=== PATIENT | male | born 1960 | race African-American/Black ===

== ENCOUNTER 2018-04-14 08:43 | Emergency (ER) | payer OTHER ==
[~2018-04-14] VITALS: Ht 172.7 cm; Wt 86.2 kg
[~2018-04-14 08:43] MED LIST: ALBUTEROL SULF8.5 GM INH; PREDNISONE20 MG ORAL
[2018-04-14 08:50] VITALS: BP 167/79
[2018-04-14] MEDS ORDERED: Ipratropium 0.02% Inh Soln 2.5ml UD ONE (08:59)
[2018-04-14] MEDS ORDERED: Albuterol ud Inhalation ONE (08:59)
[2018-04-14] MEDS ORDERED: Albuterol ud Inhalation HHN ONE (09:00)
[2018-04-14] MEDS ORDERED: Ipratropium 0.02% Inh Soln 2.5ml UD HHN ONE (09:00)
[2018-04-14] MEDS ORDERED: cefTRIAXone 1 GM in NS 55 ML IVPB ONE (09:00)
[2018-04-14 09:18] LABS: BASOPHILS % (AUTO) 2.5 % (0.0-2.0); EOSINOPHILS % (AUTO) 9.6 % (0.0-3.0); HEMATOCRIT 45.1 % (42.0-52.0); HEMOGLOBIN 14.8 G/DL (14.2-18.0); LYMPHOCYTES % (AUTO) 10.3 % (20.0-45.0); MEAN CORPUSCULAR VOLUME 89 FL (80-99); MONOCYTES % (AUTO) 9.6 % (1.0-10.0); PLATELET COUNT 193 K/UL (150-450); RED BLOOD COUNT 5.08 M/UL (4.70-6.10); RED CELL DISTRIBUTION WIDTH 11.3 % (11.6-14.8)
[2018-04-14 09:32] LABS: ANION GAP 5 mmol/L (5-15); BLOOD UREA NITROGEN 18 mg/dL (7-18); CALCIUM 8.6 MG/DL (8.5-10.1); CARBON DIOXIDE 28 MMOL/L (21-32); CHLORIDE 106 MMOL/L (98-107); CREATININE 1.2 MG/DL (0.55-1.30); POTASSIUM 3.5 MMOL/L (3.5-5.1); SODIUM 139 MMOL/L (136-145)
[2018-04-14] MEDS ORDERED: NKM (09:36)
[2018-04-14 09:37] LABS: ALANINE AMINOTRANSFERASE 19 U/L (12-78); ALBUMIN 3.3 G/DL (3.4-5.0); ALBUMIN/GLOBULIN RATIO 0.8 (1.0-2.7); ALKALINE PHOSPHATASE 112 U/L (46-116); ASPARTATE AMINO TRANSFERASE 15 U/L (15-37); BILIRUBIN,TOTAL 0.2 MG/DL (0.2-1.0); CREATINE KINASE 147 U/L (26-308)
--- NOTE | 2018-04-14 09:54 | Diagnostic Imaging Report ---
Indication: Shortness of breath Technique: One view of the chest Comparison: none Findings: Lungs and pleural spaces are clear. Heart size is normal. Impression: No acute process
[2018-04-14] MEDS ORDERED: Solu-MEDROL 40mg Inj IVP SCH (11:15)
[2018-04-14] MEDS ORDERED: Oxymetazoline 0.05% Na Spray 30ml NASAL ONE (11:15)
[2018-04-14] MEDS ORDERED: Pseudoephedrine 30mg tab ORAL ONE (11:15)
--- NOTE | 2018-04-14 11:40 | Emergency Room Report ---
History of Present Illness General Chief Complaint: Dyspnea/Respdistress Source: Patient Present Illness HPI This patient complains of a couple days of shortness of breath and wheezing. Patient has a history of COPD. He states he's also had nasal congestion and sinus congestion. He has a history of nasal polyps. He states that he has been very short of breath. He does have an albuterol inhaler. He denies sputum production. Denies fever or chills. He denies chest pain. He has no other complaints. Allergies: Coded Allergies: PENICILLINS (Verified Allergy, Unknown, 02/16/18) Patient History Past Medical History: see triage record, HTN, asthma, COPD Social History: Denies: smoking, alcohol use, drug use Reviewed Nursing Documentation: PMH: Agreed; PSxH: Agreed Nursing Documentation-PMH Past Medical History: No History, Except For Hx Hypertension: Yes Hx Asthma: Yes Hx COPD: Yes Review of Systems All Other Systems: negative except mentioned in HPI Physical Exam Vital Signs Date Time Temp Pulse Resp B/P (MAP) Pulse Ox O2 Delivery O2 Flow Rate FiO2 04/14/18 08:46 97.9 124 28 167/79 96 Room Air 04/14/18 09:07 21 Sp02 EP Interpretation: reviewed, normal General Appearance: no apparent distress, alert, GCS 15, non-toxic Head: normocephalic, atraumatic Eyes: bilateral eye normal inspection, bilateral eye PERRL ENT: hearing grossly normal, normal pharynx, no angioedema, normal voice Neck: full range of motion, supple/symm/no masses Respiratory: chest non-tender, no respiratory distress, no retraction, no accessory muscle use, speaking full sentences, wheezing, expiration Cardiovascular #1: regular rate, rhythm, no edema Gastrointestinal: normal bowel sounds, non tender, soft, non-distended, no guarding, no rebound Rectal: deferred Musculoskeletal: back normal, gait/station normal, normal range of motion, non- tender Neurologic: alert, oriented x3, responsive, motor strength/tone normal, sensory intact, speech normal Psychiatric: judgement/insight normal, memory normal, mood/affect normal, no suicidal/homicidal ideation Skin: normal color, no rash, warm/dry, well hydrated Medical Decision Making Diagnostic Impression: Primary Impression: Asthma exacerbation Additional Impression: Upper respiratory infection ER Course This patient has a clinical presentation consistent with asthma exacerbation. Patient has a history of asthma and has wheezing on physical exam. The patient was given albuterol and Atrovent nebulizer treatments. The patient was also given prednisone orally. The patient had significant improvement in subjective shortness of breath. The patient's lung exam improved significantly. I will also treat the patient with a course of antibiotics as this has been shown to improve the course of an asthma exacerbation. The patient was given close return precautions and followup instructions. Laboratory Tests Test 04/14/18 09:05 White Blood Count 10.0 K/UL (4.8-10.8) Red Blood Count 5.08 M/UL (4.70-6.10) Hemoglobin 14.8 G/DL (14.2-18.0) Hematocrit 45.1 % (42.0-52.0) Mean Corpuscular Volume 89 FL (80-99) Mean Corpuscular Hemoglobin 29.2 PG (27.0-31.0) Mean Corpuscular Hemoglobin Concent 32.8 G/DL (32.0-36.0) Red Cell Distribution Width 11.3 % (11.6-14.8) L Platelet Count 193 K/UL (150-450) Mean Platelet Volume 8.7 FL (6.5-10.1) Neutrophils (%) (Auto) 68.0 % (45.0-75.0) Lymphocytes (%) (Auto) 10.3 % (20.0-45.0) L Monocytes (%) (Auto) 9.6 % (1.0-10.0) Eosinophils (%) (Auto) 9.6 % (0.0-3.0) H Basophils (%) (Auto) 2.5 % (0.0-2.0) H Prothrombin Time 10.3 SEC (9.30-11.50) Prothrombin Time INR 1.0 (0.9-1.1) PTT 31 SEC (23-33) Sodium Level 139 MMOL/L (136-145) Potassium Level 3.5 MMOL/L (3.5-5.1) Chloride Level 106 MMOL/L (98-107) Carbon Dioxide Level 28 MMOL/L (21-32) Anion Gap 5 mmol/L (5-15) Blood Urea Nitrogen 18 mg/dL (7-18) Creatinine 1.2 MG/DL (0.55-1.30) Estimate Glomerular Filtration Rate > 60 mL/min (>60) Glucose Level 113 MG/DL (74-106) H Calcium Level 8.6 MG/DL (8.5-10.1) Total Bilirubin 0.2 MG/DL (0.2-1.0) Aspartate Amino Transferase (AST) 15 U/L (15-37) Alanine Aminotransferase (ALT) 19 U/L (12-78) Alkaline Phosphatase 112 U/L (46-116) Total Creatine Kinase 147 U/L (26-308) Troponin I 0.000 ng/mL (0.000-0.056) Total Protein 7.7 G/DL (6.4-8.2) Albumin 3.3 G/DL (3.4-5.0) L Globulin 4.4 g/dL Albumin/Globulin Ratio 0.8 (1.0-2.7) L EKG Diagnostic Results Rate: tachycardiac Rhythm: other - S.tachycardia ST Segments: no acute changes Rhythm Strip Diag. Results EP Interpretation: yes Rate: 110's Rhythm: no PVC's, no ectopy, other - S.tachycardia Chest X-Ray Diagnostic Results Chest X-Ray Diagnostic Results : Chest X-Ray Ordered: Yes # of Views/Limited/Complete: 1 View Indication: Shortness of Breath EP Interpretation: Yes Interpretation: no consolidation, no effusion, no pneumothorax, no acute cardiopulmonary disease Impression: No acute disease Electronically Signed by: Duc Last Vital Signs Date Time Temp Pulse Resp B/P (MAP) Pulse Ox O2 Delivery O2 Flow Rate FiO2 04/14/18 09:07 110 22 98 Room Air 21 04/14/18 08:50 97.9 167/79 Status: improved Disposition: HOME, SELF-CARE Condition: Improved Referrals: NON PHYSICIAN (PCP) Nia Sullivan DO Apr 14, 2018 11:40
[2018-04-14] MEDS ORDERED: PSEUDOEPHEDRINE60 MG PO (11:42)
[2018-04-14] MEDS ORDERED: ALBUTEROL SULF8.5 GM INH (11:42)
[2018-04-14] MEDS ORDERED: PREDNISONE20 MG ORAL (11:42)
[2018-04-14] MEDS ORDERED: AFRIN NASAL SPR30 ML NASAL (11:42)
[2018-04-14] MEDS ORDERED: ZITHROMAX250 MG ORAL (11:42)
[2018-04-14 13:38] VITALS: BP 145/80
== END 2018-04-14 11:46 | disposition home or self-care (01) ==
LOC: EMR 10:01
DX: J45.901 Unspecified asthma with (acute) exacerbation (principal); J06.9 Acute upper respiratory infection, unspecified; I10 Essential (primary) hypertension; Z88.0 Allergy status to penicillin
CPT/HCPCS: 36415; 71045; 80053; 82550; 84484; 85025; 85610; 85730; 93005; 94640; 96365; 96366; 96367; 99284; J0696; J2920; J7512

== ENCOUNTER 2018-04-26 02:31 | Emergency (ER) | payer OTHER ==
[~2018-04-26] VITALS: Ht 175.3 cm; Wt 79.4 kg
[~2018-04-26 02:31] MED LIST changes: +AFRIN NASAL SPR30 ML NASAL; +NKM; +PSEUDOEPHEDRINE60 MG PO; +ZITHROMAX250 MG ORAL
[2018-04-26] MEDS ORDERED: Ipratropium 0.02% Inh Soln 2.5ml UD ONE (02:35)
[2018-04-26] MEDS ORDERED: Albuterol ud Inhalation ONE (02:35)
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
[2018-04-26 02:45] VITALS: BP 160/90
[2018-04-26] MEDS ORDERED: Solu-MEDROL 125mg Inj IVP ONE (02:45)
[2018-04-26] MEDS ORDERED: Albuterol ud Inhalation HHN ONE (02:45)
[2018-04-26] MEDS ORDERED: Ipratropium 0.02% Inh Soln 2.5ml UD HHN ONE (02:45)
[2018-04-26 02:52] LABS: BASOPHILS % (AUTO) 2.1 % (0.0-2.0); EOSINOPHILS % (AUTO) 3.2 % (0.0-3.0); HEMATOCRIT 51.3 % (42.0-52.0); HEMOGLOBIN 16.5 G/DL (14.2-18.0); LYMPHOCYTES % (AUTO) 15.1 % (20.0-45.0); MEAN CORPUSCULAR VOLUME 89 FL (80-99); MONOCYTES % (AUTO) 12.5 % (1.0-10.0); NEUTROPHILS % (AUTO) 67.1 % (45.0-75.0); PLATELET COUNT 323 K/UL (150-450); RED BLOOD COUNT 5.79 M/UL (4.70-6.10); RED CELL DISTRIBUTION WIDTH 11.4 % (11.6-14.8); WHITE BLOOD COUNT 9.3 K/UL (4.8-10.8)
[2018-04-26 02:58] LABS: ANION GAP 15 mmol/L (5-15); BLOOD UREA NITROGEN 19 mg/dL (7-18); CALCIUM 9.2 MG/DL (8.5-10.1); CARBON DIOXIDE 24 MMOL/L (21-32); CHLORIDE 102 MMOL/L (98-107); CREATININE 1.8 MG/DL (0.55-1.30); POTASSIUM 3.6 MMOL/L (3.5-5.1); SODIUM 140 MMOL/L (136-145)
[2018-04-26 03:00] VITALS: BP 160/90
[2018-04-26 03:00] LABS: APPEARANCE,URINE CLEAR; BILIRUBIN, URINE 1+ (NEGATIVE); GLUCOSE, URINE (UA) NEGATIVE (NEGATIVE); KETONES,URINE 1+ (NEGATIVE); LEUKOCYTE ESTERASE ,URINE NEGATIVE (NEGATIVE); NITRITE,URINE NEGATIVE (NEGATIVE); PH,URINE 5 (4.5-8.0); PROTEIN,URINE 3+ (NEGATIVE); UROBILINOGEN,URINE 4 MG/DL (0.0-1.0)
[2018-04-26 03:06] LABS: COLOR,URINE YELLOW
--- NOTE | 2018-04-27 17:52 | Cardiology Report ---
APPROVED REPORT EKG Measurement Heart [id number] Sinus tachycardia Otherwise normal ECG
== END 2018-04-26 03:00 | disposition left against medical advice (07) ==
LOC: EMR 02:50
DX: J45.901 Unspecified asthma with (acute) exacerbation (principal); J44.9 Chronic obstructive pulmonary disease, unspecified; I10 Essential (primary) hypertension; Z88.0 Allergy status to penicillin; F14.10 Cocaine abuse, uncomplicated; N17.9 Acute kidney failure, unspecified
CPT/HCPCS: 36415; 80048; 80307; 81001; 85025; 93005; 94640; 94664; 96374; 99284; J2930

== ENCOUNTER 2018-05-09 14:19 | Emergency (ER) | payer OTHER ==
[~2018-05-09] VITALS: Ht 172.7 cm; Wt 88.5 kg
[2018-05-09 14:41] VITALS: BP 96/76
[2018-05-09] MEDS ORDERED: Solu-MEDROL 125mg Inj IM ONE (15:00)
[2018-05-09] MEDS ORDERED: Albuterol ud Inhalation HHN ONE ×2 (15:00→17:30)
[2018-05-09] MEDS ORDERED: Ipratropium 0.02% Inh Soln 2.5ml UD HHN ONE ×2 (15:00→17:30)
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
[2018-05-09 16:58] VITALS: BP 115/63
[2018-05-09 19:20] VITALS: BP 119/67
[2018-05-09] MEDS ORDERED: MEDROL DOSEPAK4 MG ORAL (19:39)
[2018-05-09] MEDS ORDERED: AFRIN NASAL SPR30 ML NASAL (19:39)
[2018-05-09] MEDS ORDERED: ALBUTEROL SULF8.5 GM INH (19:39)
[2018-05-09 19:55] VITALS: BP 119/67
== END 2018-05-09 19:58 | disposition home or self-care (01) ==
LOC: EMR 16:05
DX: J44.9 Chronic obstructive pulmonary disease, unspecified (principal); I10 Essential (primary) hypertension; Z88.0 Allergy status to penicillin
CPT/HCPCS: 94640; 94664; 96372; 99284; J2930

== ENCOUNTER 2018-07-24 07:54 | Emergency (ER) | payer OTHER ==
[~2018-07-24] VITALS: Ht 172.7 cm; Wt 86.2 kg
[~2018-07-24 07:54] MED LIST changes: +MEDROL DOSEPAK4 MG ORAL
[2018-07-24 07:59] VITALS: BP 139/91
[2018-07-24 08:10] VITALS: BP 139/91
--- NOTE | 2018-07-24 08:11 | NUR ---
ED Nurse Note: PT. AAOX4. AMBULATORY. WALKED IN TO ER DUE COUGH AND CONGESTION X COUPLE DAYS WITH L KNEE PAIN NO. DENIES INJURY
--- NOTE | 2018-07-24 08:41 | Emergency Room Report ---
History of Present Illness General Chief Complaint: Flu Like Symptoms Source: Patient Present Illness HPI This is a 58-year-old male who complains of pain on the left foot and the left knee. Denies any trauma. He states that he's been walking quite a bit. He stated he had some flulike symptoms several days ago but he has improved. He denies any coughing or congestion. He denies any fever. No other associated symptoms. He denies any other trauma. Allergies: Coded Allergies: PENICILLINS (Verified Allergy, Unknown, 02/16/18) SULFA (SULFONAMIDE ANTIBIOTICS) (Verified Allergy, Unknown, 07/24/18) Patient History Past Medical History: none Past Surgical History: none Social History: Reports: smoking Nursing Documentation-PMH Hx Hypertension: Yes Hx Asthma: Yes Hx COPD: Yes Review of Systems All Other Systems: negative except mentioned in HPI Physical Exam Vital Signs Date Time Temp Pulse Resp B/P (MAP) Pulse Ox O2 Delivery O2 Flow Rate FiO2 07/24/18 07:59 97.5 100 17 139/91 98 Room Air General Appearance: well appearing, no apparent distress Head: normocephalic, atraumatic Neck: full range of motion, supple Respiratory: no respiratory distress, speaking full sentences Gastrointestinal: normal inspection, non tender, soft Musculoskeletal: other - left knee with small effusion. full ROM. Neg anterior/ posterior drawer sign. Neg Jelani's. Left foot has tenderness over plantar fascia. Medical Decision Making Diagnostic Impression: Primary Impression: Plantar fasciitis ER Course Patient has no signs of trauma. The patient is alert. X-ray was reviewed. Blood work was reviewed as well. CT no evidence of sepsis. The patient will be given pain medication. He is to follow-up with his primary care physician as an outpatient. My suspicion is that the left foot has plantar fasciitis. I recommended the patient to be seen by his primary care physician for further treatment. Laboratory Tests Test 07/24/18 08:50 White Blood Count 5.7 K/UL (4.8-10.8) Red Blood Count 4.88 M/UL (4.70-6.10) Hemoglobin 14.1 G/DL (14.2-18.0) L Hematocrit 45.2 % (42.0-52.0) Mean Corpuscular Volume 93 FL (80-99) Mean Corpuscular Hemoglobin 28.8 PG (27.0-31.0) Mean Corpuscular Hemoglobin Concent 31.2 G/DL (32.0-36.0) L Red Cell Distribution Width 12.4 % (11.6-14.8) Platelet Count 205 K/UL (150-450) Mean Platelet Volume 7.3 FL (6.5-10.1) Neutrophils (%) (Auto) 59.5 % (45.0-75.0) Lymphocytes (%) (Auto) 15.5 % (20.0-45.0) L Monocytes (%) (Auto) 15.0 % (1.0-10.0) H Eosinophils (%) (Auto) 8.4 % (0.0-3.0) H Basophils (%) (Auto) 1.6 % (0.0-2.0) Sodium Level 139 MMOL/L (136-145) Potassium Level 4.6 MMOL/L (3.5-5.1) Chloride Level 106 MMOL/L (98-107) Carbon Dioxide Level 29 MMOL/L (21-32) Anion Gap 5 mmol/L (5-15) Blood Urea Nitrogen 20 mg/dL (7-18) H Creatinine 1.3 MG/DL (0.55-1.30) Estimate Glomerular Filtration Rate > 60 mL/min (>60) Glucose Level 81 MG/DL (74-106) Calcium Level 9.2 MG/DL (8.5-10.1) Total Bilirubin 0.4 MG/DL (0.2-1.0) Aspartate Amino Transferase (AST) 17 U/L (15-37) Alanine Aminotransferase (ALT) 21 U/L (12-78) Alkaline Phosphatase 113 U/L (46-116) Total Protein 7.2 G/DL (6.4-8.2) Albumin 3.6 G/DL (3.4-5.0) Globulin 3.6 g/dL Albumin/Globulin Ratio 1.0 (1.0-2.7) Other X-Ray Diagnostic Results Other X-Ray Diagnostic Results : # of Views/Limited Vs Complete: 3 View Indication: Pain EP Interpretation: Yes Interpretation: no dislocation, no soft tissue swelling, no fractures Last Vital Signs Date Time Temp Pulse Resp B/P (MAP) Pulse Ox O2 Delivery O2 Flow Rate FiO2 07/24/18 08:10 97.5 100 17 139/91 98 Room Air Disposition: HOME, SELF-CARE Condition: Stable Scripts Ibuprofen* (MOTRIN*) 600 Mg Tablet 600 MG ORAL Q8H PRN for For Pain, #30 TAB 0 Refills Prov: MICHELET BARROS 07/24/18 Patient Instructions: Plantar Fasciitis MICHELET BARROS Jul 24, 2018 08:41
--- NOTE | 2018-07-24 08:56 | NUR ---
ED Nurse Note: Blood was drawn and x-ray done at the bedside.
[2018-07-24 09:06] LABS: BASOPHILS % (AUTO) 1.6 % (0.0-2.0); EOSINOPHILS % (AUTO) 8.4 % (0.0-3.0); HEMATOCRIT 45.2 % (42.0-52.0); HEMOGLOBIN 14.1 G/DL (14.2-18.0); LYMPHOCYTES % (AUTO) 15.5 % (20.0-45.0); MEAN CORPUSCULAR VOLUME 93 FL (80-99); NEUTROPHILS % (AUTO) 59.5 % (45.0-75.0); PLATELET COUNT 205 K/UL (150-450); RED BLOOD COUNT 4.88 M/UL (4.70-6.10); RED CELL DISTRIBUTION WIDTH 12.4 % (11.6-14.8); WHITE BLOOD COUNT 5.7 K/UL (4.8-10.8)
[2018-07-24 09:19] LABS: ANION GAP 5 mmol/L (5-15); BLOOD UREA NITROGEN 20 mg/dL (7-18); CALCIUM 9.2 MG/DL (8.5-10.1); CARBON DIOXIDE 29 MMOL/L (21-32); CHLORIDE 106 MMOL/L (98-107); CREATININE 1.3 MG/DL (0.55-1.30); POTASSIUM 4.6 MMOL/L (3.5-5.1); SODIUM 139 MMOL/L (136-145)
[2018-07-24 09:24] LABS: ALANINE AMINOTRANSFERASE 21 U/L (12-78); ALBUMIN 3.6 G/DL (3.4-5.0); ALKALINE PHOSPHATASE 113 U/L (46-116); ASPARTATE AMINO TRANSFERASE 17 U/L (15-37); BILIRUBIN,TOTAL 0.4 MG/DL (0.2-1.0)
--- NOTE | 2018-07-24 09:38 | Diagnostic Imaging Report ---
EXAM: XR Left Knee, 3 views CLINICAL HISTORY: PAIN TECHNIQUE: Three views of the left knee. COMPARISON: No relevant prior studies available. FINDINGS: Bones/joints: Moderate tricompartmental degenerative joint space loss and marginal osteophytes in the knee, most prominent in the medial tibiofemoral compartment and patellofemoral compartment. Small suprapatellar effusion. No visible fracture or dislocation. Soft tissues: Unremarkable. No radiodense foreign bodies. No soft tissue gas lucencies. Vasculature: Atherosclerotic calcifications posteriorly. IMPRESSION: 1. Moderate tricompartmental degenerative changes in the knee, most prominent in the medial tibiofemoral compartment and patellofemoral compartment. 2. Small suprapatellar effusion.
[2018-07-24] MEDS ORDERED: IBUPROFEN600 MG ORAL (11:10)
[2018-07-24 12:11] VITALS: BP 132/68
--- NOTE | 2018-07-24 12:12 | NUR ---
ER DISCHARGE NOTE: Patient is cleared to be discharged per ERMD, pt is aox4, on room air, with stable vital signs. pt was given dc and prescription instructions, pt was able to verbalize understanding, pt id band removed. pt is able to ambulate with steady gait. pt took all belongings.
== END 2018-07-24 12:13 | disposition home or self-care (01) ==
LOC: EMR 08:36
DX: M72.2 Plantar fascial fibromatosis (principal); J44.9 Chronic obstructive pulmonary disease, unspecified; I10 Essential (primary) hypertension; F17.200 Nicotine dependence, unspecified, uncomplicated
CPT/HCPCS: 36415; 80053; 85025; 99283

== ENCOUNTER 2019-03-30 04:49 | Emergency (ER) | payer OTHER ==
[~2019-03-30] VITALS: Ht 172.7 cm; Wt 83.9 kg
[~2019-03-30 04:49] MED LIST changes: +IBUPROFEN600 MG ORAL
--- NOTE | 2019-03-30 04:58 | Emergency Room Report ---
History of Present Illness General Chief Complaint: Acute Nausea Vomiting Source: Patient (Tremayne Franz MD) Present Illness HPI 58-year-old male history of hypertension, COPD, presents with epigastric pain that started at 4 AM, no aggravating relieving factors severity is moderate, constant he reveals a burning sensation, he had several episodes of emesis, he denies any chest pain shortness of breath, no diarrhea, he denies eating anything different no one else is sick. No fever no chills (Tremayne Franz MD) Allergies: Coded Allergies: PENICILLINS (Verified Allergy, Unknown, 02/16/18) SULFA (SULFONAMIDE ANTIBIOTICS) (Verified Allergy, Unknown, 07/24/18) Patient History Past Medical History: see triage record Social History: Reports: alcohol use, drug use Reviewed Nursing Documentation: PMH: Agreed; PSxH: Agreed (Tremayne Franz MD) Nursing Documentation-PMH Hx Hypertension: Yes Hx Asthma: Yes Hx COPD: Yes (Tremayne Franz MD) Review of Systems All Other Systems: negative except mentioned in HPI (Tremayne Franz MD) Physical Exam Vital Signs Date Time Temp Pulse Resp B/P (MAP) Pulse Ox O2 Delivery O2 Flow Rate FiO2 03/30/19 04:59 98.4 114 14 158/74 (102) 100 Room Air Sp02 EP Interpretation: reviewed, normal General Appearance: well appearing, no apparent distress, alert Head: normocephalic, atraumatic Eyes: bilateral eye PERRL, bilateral eye EOMI ENT: uvula midline, moist mucus membranes Neck: supple, thyroid normal, supple/symm/no masses Respiratory: lungs clear, no respiratory distress, no retraction, no accessory muscle use Cardiovascular #1: normal peripheral pulses, no edema, no gallop, no murmur, tachycardia Gastrointestinal: soft, no guarding, no rebound, tenderness - mild tenderness epigastrically Musculoskeletal: normal inspection Neurologic: alert, oriented x3 Psychiatric: mood/affect normal Skin: no rash, warm/dry (Tremayne Franz MD) Medical Decision Making Diagnostic Impression: Primary Impression: Abdominal pain Qualified Codes: R10.13 - Epigastric pain Additional Impression: Vomiting Qualified Codes: R11.10 - Vomiting, unspecified ER Course Patient with abdominal pain, DDX pancreatitis, diverticulitis, appendicitis, ACS zofran given, fluids given Chest x-ray negative, CT scan pending Patient signed out to Dr. Mendoza (Tremayne Franz MD) ER Course Please refer to the initial note for the history exam and presentation At this time patient was pending his CAT scan result other blood work CT does not show any acute process Blood work showed lipase with minimal elevation However patient is pain-free at this time and sleeping comfortably Abdominal exam shows a soft and benign abdomen Patient has been on cardiac monitoring and continues to do well and given the resolution of symptoms and overall reevaluation Stable for close outpatient follow-up Labs Test 03/30/19 05:15 03/30/19 07:18 White Blood Count 8.2 K/UL (4.8-10.8) Red Blood Count 4.45 M/UL (4.70-6.10) Hemoglobin 13.2 G/DL (14.2-18.0) Hematocrit 41.0 % (42.0-52.0) Mean Corpuscular Volume 92 FL (80-99) Mean Corpuscular Hemoglobin 29.8 PG (27.0-31.0) Mean Corpuscular Hemoglobin Concent 32.3 G/DL (32.0-36.0) Red Cell Distribution Width 12.1 % (11.6-14.8) Platelet Count 293 K/UL (150-450) Mean Platelet Volume 6.1 FL (6.5-10.1) Neutrophils (%) (Auto) 70.2 % (45.0-75.0) Lymphocytes (%) (Auto) 16.3 % (20.0-45.0) Monocytes (%) (Auto) 10.3 % (1.0-10.0) Eosinophils (%) (Auto) 2.7 % (0.0-3.0) Basophils (%) (Auto) 0.5 % (0.0-2.0) Prothrombin Time 10.2 SEC (9.30-11.50) Prothromb Time International Ratio 1.0 (0.9-1.1) Activated Partial Thromboplast Time 29 SEC (23-33) Sodium Level 143 MMOL/L (136-145) Potassium Level 3.2 MMOL/L (3.5-5.1) Chloride Level 108 MMOL/L (98-107) Carbon Dioxide Level 30 MMOL/L (21-32) Anion Gap 5 mmol/L (5-15) Blood Urea Nitrogen 14 mg/dL (7-18) Creatinine 1.3 MG/DL (0.55-1.30) Estimat Glomerular Filtration Rate > 60 mL/min (>60) Glucose Level 142 MG/DL (74-106) Calcium Level 8.6 MG/DL (8.5-10.1) Total Bilirubin 0.2 MG/DL (0.2-1.0) Aspartate Amino Transf (AST/SGOT) 8 U/L (15-37) Alanine Aminotransferase (ALT/SGPT) 19 U/L (12-78) Alkaline Phosphatase 105 U/L (46-116) Troponin I 0.012 ng/mL (0.000-0.056) Total Protein 7.1 G/DL (6.4-8.2) Albumin 3.4 G/DL (3.4-5.0) Globulin 3.7 g/dL Albumin/Globulin Ratio 0.9 (1.0-2.7) Lipase 614 U/L (73-393) Urine Color Pale yellow Urine Appearance Clear Urine pH 8 (4.5-8.0) Urine Specific [place] 1.015 (1.005-1.035) Urine Protein 1+ (NEGATIVE) Urine Glucose (UA) Negative (NEGATIVE) Urine Ketones Negative (NEGATIVE) Urine Blood Negative (NEGATIVE) Urine Nitrite Negative (NEGATIVE) Urine Bilirubin Negative (NEGATIVE) Urine Urobilinogen Normal MG/DL (0.0-1.0) Urine Leukocyte Esterase Negative (NEGATIVE) Urine Opiates Screen Negative (NEGATIVE) Urine Barbiturates Screen Negative (NEGATIVE) Phencyclidine (PCP) Screen Negative (NEGATIVE) Urine Amphetamines Screen Negative (NEGATIVE) Urine Benzodiazepines Screen Negative (NEGATIVE) Urine Cocaine Screen Positive (NEGATIVE) Urine Marijuana (THC) Screen Negative (NEGATIVE) (Ziggy Mendoza DO) EKG Diagnostic Results EKG Time: 05:27 EP Interpretation: NSR, rate 99, QTc 462, no acute ST elevations, normal axis (Tremayne Franz MD) Rhythm Strip Diag. Results Rhythm Strip Time: 05:33 EP Interpretation: yes Rate: 113 Rhythm: no PVC's, no ectopy, other - Sinus tachycardia (Tremayne Franz MD) EP Interpretation: yes Rate: 88 Rhythm: NSR, no PVC's, no ectopy (Ziggy Mendoza DO) Chest X-Ray Diagnostic Results Chest X-Ray Diagnostic Results : Chest X-Ray Ordered: Yes # of Views/Limited/Complete: 1 View Indication: Other - Epigastric pain EP Interpretation: Yes Interpretation: no consolidation, no effusion, no pneumothorax, no acute cardiopulmonary disease Impression: No acute disease Electronically Signed by: Tremayne Franz MD (Tremayne Franz MD) CT/MRI/US Diagnostic Results CT/MRI/US Diagnostic Results : Impression CT abdomen pelvis: No acute process (Ziggy Mendoza DO) Status: improved (Ziggy Mendoza DO) Disposition: HOME, SELF-CARE Condition: Improved Scripts Famotidine (PEPCID AC) 20 Mg Tablet 20 MG PO DAILY for 10 Days, #10 TAB Prov: Ziggy Mendoza DO 03/30/19 Additional Instructions: Patient is provided with the discharge instructions notified to follow up with primary doctor in the next 2-3 days otherwise return to the er with any worsening symptoms. Please note that this report is being documented using [employer] technology. This can lead to erroneous entry secondary to incorrect interpretation by the dictating instrument. Tremayne Franz MD Mar 30, 2019 04:57 Ziggy Mendoza DO Mar 30, 2019 07:49
[2019-03-30] MEDS ORDERED: Insulin Human Regular 100units/ml 3ml IV ONE (05:00)
[2019-03-30 05:05] VITALS: BP 137/74
--- NOTE | 2019-03-30 05:05 | NUR ---
ED Nurse Note: pt walked in to ED C/O N/D since 399 today. stated he ate yoshinoya ealier today. denies any diarrhea. pt stated he vomitted about 4 times. pt is alert x4. VSS
[2019-03-30] MEDS ORDERED: Lidocaine 2% Visc 15ml soln ORAL ONE (05:15)
[2019-03-30] MEDS ORDERED: Mylanta II UD 30ml ORAL ONE (05:15)
[2019-03-30] MEDS ORDERED: Dicyclomine HCl 10mg/5ml oral soln ORAL ONE (05:15)
[2019-03-30] MEDS ORDERED: Omnipaque-300 100ml vial INJ PRN (05:15)
--- NOTE | 2019-03-30 05:16 | NUR ---
ED Nurse Note: Urine sample sent down to lab
--- NOTE | 2019-03-30 05:31 | NUR ---
ED Nurse Note: pt unable to provide urine at this time, pt is aware he needs to provide urine sample and will notify staff when he is ready to urinate.
[2019-03-30 05:34] LABS: BASOPHILS % (AUTO) 0.5 % (0.0-2.0); EOSINOPHILS % (AUTO) 2.7 % (0.0-3.0); HEMOGLOBIN 13.2 G/DL (14.2-18.0); LYMPHOCYTES % (AUTO) 16.3 % (20.0-45.0); MEAN CORPUSCULAR VOLUME 92 FL (80-99); MONOCYTES % (AUTO) 10.3 % (1.0-10.0); NEUTROPHILS % (AUTO) 70.2 % (45.0-75.0); PLATELET COUNT 293 K/UL (150-450); RED BLOOD COUNT 4.45 M/UL (4.70-6.10); RED CELL DISTRIBUTION WIDTH 12.1 % (11.6-14.8); WHITE BLOOD COUNT 8.2 K/UL (4.8-10.8)
--- NOTE | 2019-03-30 05:45 | NUR ---
ED Nurse Note: CXR done at bedside.
[2019-03-30 05:50] LABS: ANION GAP 5 mmol/L (5-15); BLOOD UREA NITROGEN 14 mg/dL (7-18); CALCIUM 8.6 MG/DL (8.5-10.1); CARBON DIOXIDE 30 MMOL/L (21-32); CHLORIDE 108 MMOL/L (98-107); CREATININE 1.3 MG/DL (0.55-1.30); POTASSIUM 3.2 MMOL/L (3.5-5.1); SODIUM 143 MMOL/L (136-145)
[2019-03-30 05:54] LABS: ALANINE AMINOTRANSFERASE 19 U/L (12-78); ALBUMIN 3.4 G/DL (3.4-5.0); ALBUMIN/GLOBULIN RATIO 0.9 (1.0-2.7); ALKALINE PHOSPHATASE 105 U/L (46-116); ASPARTATE AMINO TRANSFERASE 8 U/L (15-37); BILIRUBIN,TOTAL 0.2 MG/DL (0.2-1.0)
--- NOTE | 2019-03-30 05:57 | NUR ---
ED Nurse Note: pt taken down to CT accompanied by radiology practitioner assistant via W/C
--- NOTE | 2019-03-30 06:15 | NUR ---
ED Nurse Note: pt was brought back from CT accompanied by remediation technician via W/C in stable condition.
--- NOTE | 2019-03-30 06:51 | Diagnostic Imaging Report ---
Indication: Abdominal pain Technique: Continuous helical transaxial imaging of the abdomen and pelvis was obtained from the lung bases to the pubic symphysis during intravenous contrast administration. Coronal 2-D reformats were also obtained. Study obtained in a Siemens sensation [address] Automatic Exposure Control was utilized. Total Dose length Product (DLP): [address] Dose Index Volume (CTDIvol): 17 mGy Comparison: None Findings: There is a hiatal hernia present. The lung bases are clear. Bowel gas pattern is nonobstructive. The appendix is normal. There is no free fluid. Bladder is nondistended. Mild calcium within the wall of aorta noted. No abnormalities of solid organs identified. There is a minimal retrolisthesis at L5-S1 and hypertrophy of the lumbar facets at multiple levels. Narrowing of intervertebral discs noted multiple levels. IMPRESSION: No acute findings identified. Hiatal hernia.. Degenerative changes of the spine [facility] has communicated the preliminary results to the Emergency Department. Their findings are largely concordant with this report. The CT scanner at [facility] is accredited by the [employer] and the scans are performed using dose optimization techniques as appropriate to a performed exam including Automatic Exposure control.
--- NOTE | 2019-03-30 07:05 | NUR ---
ED Nurse Note: report given to CARLOS Ivan
[2019-03-30 07:37] LABS: APPEARANCE,URINE CLEAR; BILIRUBIN, URINE NEGATIVE (NEGATIVE); COLOR,URINE PALE YELLOW; GLUCOSE, URINE (UA) NEGATIVE (NEGATIVE); KETONES,URINE NEGATIVE (NEGATIVE); LEUKOCYTE ESTERASE ,URINE NEGATIVE (NEGATIVE); NITRITE,URINE NEGATIVE (NEGATIVE); PH,URINE 8 (4.5-8.0); PROTEIN,URINE 1+ (NEGATIVE); UROBILINOGEN,URINE NORMAL MG/DL (0.0-1.0)
[2019-03-30] MEDS ORDERED: PEPCID AC20 M2 PO (07:44)
[2019-03-30 07:50] VITALS: BP 127/70
--- NOTE | 2019-03-30 07:50 | NUR ---
ER DISCHARGE NOTE: Patient is cleared to be discharged per ERMD with friend, pt is aox4, on room air, with stable vital signs. pt was given dc and prescription instructions, pt was able to verbalize understanding, pt id band and iv site removed without complications. pt is able to ambulate with steady gait. pt took all belongings.
--- NOTE | 2019-03-30 11:15 | Diagnostic Imaging Report ---
Indication: Chest pain Comparison: 04/14/2018 A single view chest radiograph was obtained. Findings: Cardiomediastinal appearance is within normal limits for age. The lungs are clear. Pulmonary vascularity is appropriate. The diaphragmatic contour is smooth and costophrenic angles are sharp. No pleural effusions are identified. The bones are unremarkable. Impression: No acute findings
== END 2019-03-30 07:53 | disposition home or self-care (01) ==
LOC: EMR 05:00
DX: R10.13 Epigastric pain (principal); R11.10 Vomiting, unspecified; J44.9 Chronic obstructive pulmonary disease, unspecified; I10 Essential (primary) hypertension; Z88.0 Allergy status to penicillin; Z88.2 Allergy status to sulfonamides; R07.9 Chest pain, unspecified
CPT/HCPCS: 36415; 71045; 74177; 80053; 80307; 81003; 83690; 84484; 85025; 85610; 85730; 93005; 96361; 96374; 96375; J2405; Q9967; S0028; Z7502; 99284